=== PATIENT | female | born 1990 | race Two or more races ===

== ENCOUNTER 2017-12-06 07:10 | Emergency (ER) | payer MEDICAID ==
[~2017-12-06] VITALS: Ht 165.1 cm; Wt 72.6 kg
[2017-12-06 07:27] VITALS: BP 130/70
[2017-12-06] MEDS ORDERED: IBUPROFEN 600 MG TAB PO ONE ×2 (07:29→07:30)
[2017-12-06] MEDS ORDERED: cefTRIAXone SOD 1,000 MG VL ONE (08:40)
[2017-12-06] MEDS ORDERED: cefTRIAXone SOD 1,000 MG VL IM ONE (08:45)
== END 2017-12-06 09:03 | disposition home or self-care (01) ==
LOC: ER 07:15
DX: N39.0 Urinary tract infection, site not specified (principal); Z88.1 Allergy status to other antibiotic agents
CPT/HCPCS: 81025; 96372; 99283; J0696

== ENCOUNTER 2020-09-02 13:51 | Emergency (ER) | payer MEDICAID ==
[~2020-09-02] VITALS: Ht 162.6 cm; Wt 70.3 kg
[2020-09-02 15:20] VITALS: BP 146/83
[2020-09-02] MEDS ORDERED: KETOROLAC TROMETH 60MG/2ML VIAL IM ONE (16:00)
== END 2020-09-02 16:20 | disposition home or self-care (01) ==
LOC: ER 13:51
DX: S39.012A Strain of muscle, fascia and tendon of lower back, initial encounter (principal); M54.42 Lumbago with sciatica, left side; Z88.1 Allergy status to other antibiotic agents; X50.1XXA Overexertion from prolonged static or awkward postures, initial encounter; Y93.89 Activity, other specified; Y92.89 Other specified places as the place of occurrence of the external cause; Y99.8 Other external cause status
CPT/HCPCS: 72100; 96372; 99283; J1885